=== PATIENT | female | born 1950 | race Caucasian/White ===

== ENCOUNTER 2017-11-07 09:46 | Emergency (ER) | payer MEDICARE, OTHER ==
[~2017-11-07] VITALS: Ht 165.1 cm; Wt 78.9 kg
[~2017-11-07 09:46] MED LIST: BACTRIM DS TAB1 EACH PO; HYDROCODONE-AP1 EAC6 PO; NORCO 5-325 TA1 EAC1 PO
[2017-11-07] MEDS ORDERED: PROGRAF1 MG PO (09:57)
[2017-11-07] MEDS ORDERED: FLONASE 0.05%50 MCG NASAL (09:58)
[2017-11-07] MEDS ORDERED: LIPITOR10 MG PO (09:58)
[2017-11-07] MEDS ORDERED: PRILOSEC 10MG C10 MG PO (09:58)
[2017-11-07] MEDS ORDERED: ZYRTEC10 M2 PO (09:58)
[2017-11-07] MEDS ORDERED: NORCO 5-325 TA1 EAC1 PO (10:23)
[2017-11-07 10:55] VITALS: BP 122/69
== END 2017-11-07 10:56 | disposition home or self-care (01) ==
LOC: M.ERS 09:46
DX: S82.64XA Nondisplaced fracture of lateral malleolus of right fibula, initial encounter for closed fracture (principal); N18.3 Chronic kidney disease, stage 3 (moderate); Z85.828 Personal history of other malignant neoplasm of skin; Z88.5 Allergy status to narcotic agent; Z88.8 Allergy status to other drugs, medicaments and biological substances; Z88.1 Allergy status to other antibiotic agents; W17.2XXA Fall into hole, initial encounter; Y93.89 Activity, other specified; Y92.096 Garden or yard of other non-institutional residence as the place of occurrence of the external cause; Y99.8 Other external cause status

== ENCOUNTER → 2018-01-28 | Outpatient (CLI) | payer MEDICARE, OTHER ==
[~2018-01-28] MED LIST changes: +FLONASE 0.05%50 MCG NASAL; +LIPITOR10 MG PO; +PRILOSEC 10MG C10 MG PO; +PROGRAF1 MG PO; +ZYRTEC10 M2 PO
== END ==
LOC: M.RAD 09:20
DX: Z12.31 Encounter for screening mammogram for malignant neoplasm of breast (principal)

== ENCOUNTER → 2019-02-19 | Outpatient (CLI) | payer MEDICARE, OTHER | LOC: M.RAD 08:49 | DX: Z12.31 Encounter for screening mammogram for malignant neoplasm of breast (principal) ==

== ENCOUNTER → 2019-06-08 | Outpatient (CLI) | payer MEDICARE, OTHER | LOC: M.ULTRA 09:00 | DX: Z94.4 Liver transplant status (principal); Z79.899 Other long term (current) drug therapy; K74.0 Hepatic fibrosis ==

== ENCOUNTER → 2020-02-22 | Outpatient (CLI) | payer MEDICARE, OTHER | LOC: M.RAD 09:46 | PROVIDERS: ATTEND Internal Medicine | DX: Z12.31 Encounter for screening mammogram for malignant neoplasm of breast (principal) ==

== ENCOUNTER → 2020-06-10 | Outpatient (CLI) | payer MEDICARE, OTHER | LOC: M.RAD 13:00 | PROVIDERS: ATTEND Internal Medicine | DX: M85.88 Other specified disorders of bone density and structure, other site (principal); D84.9 Immunodeficiency, unspecified; Z94.4 Liver transplant status ==

== ENCOUNTER → 2021-02-23 | Outpatient (CLI) | payer MEDICARE, OTHER | LOC: M.RAD 09:05 | PROVIDERS: ATTEND Internal Medicine | DX: Z12.31 Encounter for screening mammogram for malignant neoplasm of breast (principal) ==